=== PATIENT | female | born 1990 | race Caucasian/White ===

== ENCOUNTER 2017-08-19 12:58 | Emergency (ER) | payer BC, OTHER ==
[~2017-08-19 12:58] MED LIST: AMOXPOW XX; BUDE300T PO; DICY1TAB26 PO; DULO20 PO; PROT40TA PO
--- NOTE | 2017-08-19 13:28 | PD ---
HPI Chief Complaint Wrist and ankle swelling 2 days Elevated BP at home 1 day 37 weeks Travel History International Travel<30 Days: No Contact w/Intl Traveler<30Days: No Known Affected Area: No History of Present Illness HPI Pt is a 27 yo at 37 weeks. EDC 09-10-2017. Pt receives care with [facility] in [place]. Pt reports swelling of wrists and ankles past couple of days. Pt states that her BP normally 'runs low', and systolic BP was 105 in office last week. Pt states that her systolic BP [id number] at home last night and same this morning. She states she has been having headaches at night past week, which resolve on their own. She reports active movements. 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 She has a h/o PCOS. She has a C Section planned for [facility] 09-03-2017. Weeks Gestation: 37 Para: 0 : 1 History Past Medical History Narrative Medical PCOS h/o anxiety/depression Obstetric History Obstetric History h/o uterine fibroids, removed hysteroscopically Unicornuate uterus PCOS Past Surgical History Surgical History: No Previous Surgery Family History Family History: Social History Alcohol Use: No Tobacco Use: No Substance Abuse: No Allergies-Medications (Allergen,Severity, Reaction): Coded Allergies: codeine (Unverified Allergy, Unknown, STOP BREATHING, 04/07/17) Home Meds Active Scripts Dicyclomine Hcl (Bentyl) 20 Mg Tab, 20 MG PO Q6HPRN, #30 FOR CRAMPS Prov:SELINA FERNANDEZ M.D. 10/12/12 Pantoprazole Sod (Protonix) 40 Mg Tabdr, 40 MG PO DAILY for 30 Days Prov:SELINA FERNANDEZ M.D. 10/12/12 Reported Medications Amoxicillin (Amoxicillin) Pow, 1 XX 10/12/12 Bupropion Hcl (Wellbutrin Xl) Tab, 1 PO 10/12/12 DULOXETINE HCl (Cymbalta) 20 Mg Cap, 0 PO DAILY UNKNOWN DOSE 10/12/12 Review of Systems Except as stated in HPI: all other systems reviewed are Neg Physical Exam Narrative GENERAL: Well-nourished, well-developed patient. SKIN: Warm and dry. HEAD: Normocephalic and atraumatic. EYES: No scleral icterus. No injection or drainage. ENT: No nasal drainage noted. Mucous membranes pink. Airway patent. NECK: Supple, trachea midline. No JVD. CARDIOVASCULAR: Regular rate and rhythm without murmurs, gallops, or rubs. RESPIRATORY: Breath sounds equal bilaterally. No accessory muscle use. BREASTS: Bilateral exam showed no masses , no retractions, no nipple discharge. ABDOMEN/GI: Abdomen soft, non-tender, bowel sounds present, no rebound, no guarding Gravid to [37] weeks size Fundal Height: [37] GENITOURINARY: External Genitalia: intact and normal in appearance Uterine Contractions: [none] FHT's: Category: [1] Baseline: [130s] Reactive: [-] Variability: [excellent] Decels: [none] EXTREMITIES: No cyanosis or edema. BACK: Nontender without obvious deformity. No CVA tenderness. NEUROLOGICAL: Awake and alert. Motor and sensory grossly within normal limits. Five out of 5 muscle strength in all muscle groups. Normal speech. Normal DTRs at patella, no pedal or wrist edema noted Data Data Vital Signs Reviewed: Yes [facility] Medical Record Reviewed: No Plan 27 yo at 37 weeks . Presents with c/o lower extremity and wrist swelling. Self-resolving headaches, nausea and blurred vision at night only. NST Cat 1, with brief decelleration with spontaneous resolution noted earlier. Normal DTR at patella. BP has been wnl. Last BP was 103/70. We did not appreciate significant edema at wrist or ankle. Labs all wnl. No proteinuria. Diagnosis Diagnosis: Primary Impression: 37 weeks gestation of Additional Impression: Swelling of lower extremity during Disposition: 01 DISCHARGE HOME Condition: Good Brenton Yin MD Aug 19, 2017 13:28
[2017-08-19 13:30] VITALS: BP 125/67; PULSE 92
[2017-08-19 13:46] VITALS: BP 115/61; PULSE 77
[2017-08-19 14:00] VITALS: BP 108/64; PULSE 79
[2017-08-19 14:01] LABS: HEMATOCRIT 38.8 % (35.0-46.0); HEMOGLOBIN 13.4 GM/DL (11.6-15.3); MEAN CELL VOLUME 88.5 FL (80.0-100.0); MEAN CORPUSCULAR HEMOGLOBIN 30.5 PG (27.0-34.0); MEAN CORPUSCULAR HGB CONC 34.5 % (32.0-36.0); MEAN PLATELET VOLUME 9.2 FL (7.0-11.0); PLATELET COUNT 279 TH/MM3 (150-450); RED BLOOD COUNT 4.39 MIL/MM3 (4.00-5.30); RED CELL DISTRIBUTION WIDTH 12.9 % (11.6-17.2); WHITE BLOOD COUNT 14.9 TH/MM3 (4.0-11.0)
[2017-08-19 14:06] LABS: BACTERIA, URINE RARE /hpf; BILIRUBIN, URINE NEG (NEG); BLOOD, URINE NEG (NEG); GLUCOSE,URINE NEG (NEG); KETONE, URINE NEG (NEG); NITRITE,URINE NEG (NEG); SQUAMOUS EPITHELIAL CELL URINE 1 /hpf (0-5); URINE COLOR LIGHT-YELLOW (YELLW/STRAW); URINE LEUKOCYTE ESTERASE TRACE (NEG)
[2017-08-19 14:15] VITALS: RESP 18
[2017-08-19 14:25] LABS: ALBUMIN 2.6 GM/DL (3.4-5.0); ALT (GPT) 28 U/L (10-53); AST (GOT) 21 U/L (15-37); BICARBONATE 23.2 MEQ/L (21.0-32.0); BLOOD UREA NITROGEN 8 MG/DL (7-18); CALCIUM 8.3 MG/DL (8.5-10.1); CHLORIDE 108 MEQ/L (98-107); GLOMERULAR FILTRATION RATE 100 ML/MIN (>89); GLUCOSE,RANDOM 96 MG/DL (74-106); SODIUM (NA) 139 MEQ/L (136-145)
[2017-08-19 14:28] LABS: ALKALINE PHOSPHATASE 161 U/L (45-117); TOTAL BILIRUBIN ADULT 0.3 MG/DL (0.2-1.0); TOTAL PROTEIN 6.4 GM/DL (6.4-8.2)
[2017-08-19 14:30] VITALS: BP 103/67; PULSE 78
== END 2017-08-19 15:00 | disposition home or self-care (01) ==
LOC: HOBED 12:58
DX: O12.03 Gestational edema, third trimester (principal); Z3A.37 37 weeks gestation of pregnancy
CPT/HCPCS: 36415; 59025; 80053; 81001; 84550; 85027